=== PATIENT | male | born 1940 | race Caucasian/White ===

== ENCOUNTER → 2016-11-16 | Outpatient (CLI) | payer MEDICARE, MEDICAID ==
[~2016-11-16] MED LIST: ASPI-231; CARB100C; CARV25TA55; DOXY100C46; FURO40TA4; LISI-275; POTA20TA53; WARF4TAB31
[2016-11-16 14:17] LABS: INR 3.3 (0.7-1.3); Prothrombin Time 40.2 sec (9.0-12.0)
== END | disposition home or self-care (01) ==
LOC: LAB 14:01
PROVIDERS: ATTEND Internal Medicine Cardiovascular Disease
DX: R79.1 Abnormal coagulation profile (principal)
CPT/HCPCS: 85610

== ENCOUNTER → 2016-11-23 | Outpatient (CLI) | payer MEDICARE, MEDICAID ==
[2016-11-23 10:06] LABS: INR 2.1 (0.7-1.3); Prothrombin Time 25.1 sec (9.0-12.0)
== END | disposition home or self-care (01) ==
LOC: LAB 09:52
PROVIDERS: ATTEND Internal Medicine Cardiovascular Disease
DX: R79.1 Abnormal coagulation profile (principal)
CPT/HCPCS: 85610

== ENCOUNTER → 2016-11-29 | Outpatient (CLI) | payer MEDICARE, MEDICAID ==
[2016-11-29 14:35] LABS: INR 2.8 (0.7-1.3); Prothrombin Time 33.3 sec (9.0-12.0)
== END | disposition home or self-care (01) ==
LOC: LAB 14:08
PROVIDERS: ATTEND Internal Medicine Cardiovascular Disease
DX: R79.1 Abnormal coagulation profile (principal)
CPT/HCPCS: 85610

== ENCOUNTER → 2016-12-07 | Outpatient (CLI) | payer MEDICARE, MEDICAID ==
[2016-12-07 11:21] LABS: INR 3.4 (0.7-1.3); Prothrombin Time 40.8 sec (9.0-12.0)
== END | disposition home or self-care (01) ==
LOC: LAB 11:07
PROVIDERS: ATTEND Internal Medicine Cardiovascular Disease
DX: R79.1 Abnormal coagulation profile (principal)
CPT/HCPCS: 85610

== ENCOUNTER → 2016-12-13 | Outpatient (CLI) | payer MEDICARE, MEDICAID ==
[2016-12-13 11:46] LABS: Prothrombin Time 36.3 sec (9.0-12.0)
== END | disposition home or self-care (01) ==
LOC: LAB 08:59
PROVIDERS: ATTEND Internal Medicine Cardiovascular Disease
DX: R79.1 Abnormal coagulation profile (principal)
CPT/HCPCS: 85610

== ENCOUNTER → 2016-12-17 | Outpatient (CLI) | payer MEDICARE, MEDICAID ==
[2016-12-17 10:36] LABS: INR 1.6 (0.7-1.3); Prothrombin Time 19.6 sec (9.0-12.0)
== END | disposition home or self-care (01) ==
LOC: LAB 08:41
PROVIDERS: ATTEND Internal Medicine Cardiovascular Disease
DX: R79.1 Abnormal coagulation profile (principal)
CPT/HCPCS: 85610

== ENCOUNTER → 2016-12-26 | Outpatient (CLI) | payer MEDICARE, MEDICAID ==
[~2016-12-26] MED LIST changes: +ENOXAPARIN SOD 60 MG/0.6 ML SYRINGE SC ONE
[2016-12-26 10:55] VITALS: BP 133/72
[2016-12-26] MEDS: ENOXAPARIN SOD 60 MG/0.6 ML SYRINGE SC ONE (11:27)
[2016-12-26 11:30] VITALS: BP 130/68
[2016-12-26 12:16] LABS: INR 2.4 (0.7-1.3); Prothrombin Time 29.2 sec (9.0-12.0)
== END | disposition home or self-care (01) ==
LOC: CHF HDHVI 10:56
PROVIDERS: ATTEND Internal Medicine Cardiovascular Disease
DX: I50.23 Acute on chronic systolic (congestive) heart failure (principal); I10 Essential (primary) hypertension; I25.10 Atherosclerotic heart disease of native coronary artery without angina pectoris; E78.00 Pure hypercholesterolemia, unspecified; R79.1 Abnormal coagulation profile; Z95.0 Presence of cardiac pacemaker
CPT/HCPCS: 85610; 96372; G0463; J1650

== ENCOUNTER → 2016-12-27 | Outpatient (CLI) | payer MEDICARE, MEDICAID ==
[2016-12-27 15:10] VITALS: BP 114/60
[2016-12-27 15:45] VITALS: BP 122/60
== END | disposition home or self-care (01) ==
LOC: CHF HDHVI 15:09
PROVIDERS: ATTEND Internal Medicine Cardiovascular Disease
DX: I50.23 Acute on chronic systolic (congestive) heart failure (principal); I25.10 Atherosclerotic heart disease of native coronary artery without angina pectoris; I10 Essential (primary) hypertension; C78.00 Secondary malignant neoplasm of unspecified lung; Z95.2 Presence of prosthetic heart valve
CPT/HCPCS: 96372; G0463; J1650

== ENCOUNTER → 2016-12-31 | Outpatient (CLI) | payer MEDICARE, MEDICAID ==
[~2016-12-31] MED LIST changes: +KETOROLAC TROMETH 60MG/2ML VIAL IM ONE
[2016-12-31 11:44] VITALS: BP 132/76
[2016-12-31 12:45] VITALS: BP 130/72
[2016-12-31 17:32] LABS: Basophils # (auto) 0 uL; Basophils % (auto) 0.5 % (0.0-2.0); Eosinophils # (auto) 0.1 uL; Eosinophils % (auto) 2.9 % (0.0-7.0); Hematocrit 36.5 % (41.0-53.0); Hemoglobin 11.7 g/dL (13.5-17.5); Lymphocytes # (auto) 0.9 uL; Lymphocytes % (auto) 22.3 % (10.0-50.0); Mean Corpuscular Hemoglobin 27.7 pg (28.0-32.0); Mean Corpuscular Hgb Conc. 32.1 g/dL (32.0-36.0); Mean Corpuscular Volume 86.1 fL (80.0-100.0); Mean Platelet Volume 8.1 fL (7.4-10.4); Monocytes # (auto) 0.6 uL; Monocytes % (auto) 14.6 % (0.0-12.0); Neutrophils # (auto) 2.4 uL; Neutrophils % (auto) 59.7 % (37.0-80.0); Platelet Count (auto) 221 10^3/uL (140-450); Red Cell Distribution Width 17.5 % (11.6-16.0)
[2016-12-31 17:52] LABS: Anion Gap 10 (5-15); BUN/Creatinine Ratio 11.8; Blood Urea Nitrogen 11 mg/dL (7-18); Calcium 8.5 mg/dL (8.5-10.1); Carbon Dioxide 25 mmol/L (21-32); Chloride 108 mmol/L (98-107); GFR African American 102 mL/min; GFR Non-African American 84 mL/min; Glucose 73 mg/dL (74-106); Magnesium 2.6 mg/dL (1.6-2.6); Potassium 4.1 mmol/L (3.5-5.1); Sodium 143 mmol/L (136-145)
== END | disposition home or self-care (01) ==
LOC: CHF HDHVI 11:40
PROVIDERS: ATTEND Internal Medicine Cardiovascular Disease
DX: R79.89 Other specified abnormal findings of blood chemistry (principal); R53.81 Other malaise; D64.9 Anemia, unspecified; E83.40 Disorders of magnesium metabolism, unspecified; T42.1X Poisoning by, adverse effect of and underdosing of iminostilbenes
CPT/HCPCS: 36415; 80048; 80156; 83735; 84403; 84484; 85025; 93005; 96372; G0463; J1885

== ENCOUNTER → 2017-01-02 | Outpatient (CLI) | payer MEDICARE, MEDICAID ==
[2017-01-02 09:25] VITALS: BP 144/79
[2017-01-02 09:42] LABS: INR 3.5 (0.7-1.3)
[2017-01-02 09:55] VITALS: BP 137/79
== END | disposition home or self-care (01) ==
LOC: CHF HDHVI 09:34
PROVIDERS: ATTEND Internal Medicine Cardiovascular Disease
DX: I10 Essential (primary) hypertension (principal); D64.9 Anemia, unspecified; I25.10 Atherosclerotic heart disease of native coronary artery without angina pectoris; M54.2 Cervicalgia
CPT/HCPCS: 85610; 96372; G0463; J1650; J1885

== ENCOUNTER → 2017-01-07 | Outpatient (CLI) | payer MEDICARE, MEDICAID ==
[~2017-01-07] MED LIST changes: -ENOXAPARIN SOD 60 MG/0.6 ML SYRINGE SC ONE; -KETOROLAC TROMETH 60MG/2ML VIAL IM ONE
[2017-01-07 11:40] VITALS: BP 163/84
[2017-01-07 13:11] LABS: INR 2.8 (0.7-1.3); Prothrombin Time 33.1 sec (9.0-12.0)
[2017-01-07 13:56] LABS: INR 2.8 (0.7-1.3); Prothrombin Time 33.1 sec (9.0-12.0)
== END | disposition home or self-care (01) ==
LOC: CHF HDHVI 11:49
PROVIDERS: ATTEND Internal Medicine Cardiovascular Disease
DX: I35.0 Nonrheumatic aortic (valve) stenosis (principal); I25.10 Atherosclerotic heart disease of native coronary artery without angina pectoris; I10 Essential (primary) hypertension; D64.9 Anemia, unspecified; R79.1 Abnormal coagulation profile
CPT/HCPCS: 85610; G0463

== ENCOUNTER → 2017-01-09 | Outpatient (CLI) | payer MEDICARE, MEDICAID ==
[~2017-01-09] MED LIST changes: +KETOROLAC TROMETH 60MG/2ML VIAL IM ONE
[2017-01-09 09:30] VITALS: BP 131/74
[2017-01-09 09:45] VITALS: BP 134/70
== END | disposition home or self-care (01) ==
LOC: CHF HDHVI 09:18
PROVIDERS: ATTEND Internal Medicine Cardiovascular Disease
DX: I11.0 Hypertensive heart disease with heart failure (principal); I50.9 Heart failure, unspecified; I25.10 Atherosclerotic heart disease of native coronary artery without angina pectoris; M54.2 Cervicalgia
CPT/HCPCS: 96372; G0463; J1885

== ENCOUNTER → 2017-01-14 | Outpatient (CLI) | payer MEDICARE, MEDICAID ==
[~2017-01-14] MED LIST changes: -KETOROLAC TROMETH 60MG/2ML VIAL IM ONE
[2017-01-14 11:30] VITALS: BP 117/67
[2017-01-14 11:37] LABS: INR 3.4 (0.7-1.3); Prothrombin Time 40.9 sec (9.0-12.0)
[2017-01-14 12:00] VITALS: BP 114/72
== END | disposition home or self-care (01) ==
LOC: CHF HDHVI 11:29
PROVIDERS: ATTEND Internal Medicine Cardiovascular Disease
DX: I11.0 Hypertensive heart disease with heart failure (principal); I50.9 Heart failure, unspecified; I25.10 Atherosclerotic heart disease of native coronary artery without angina pectoris; Z95.2 Presence of prosthetic heart valve; R79.1 Abnormal coagulation profile; Z79.01 Long term (current) use of anticoagulants
CPT/HCPCS: 85610; G0463

== ENCOUNTER → 2017-01-28 | Outpatient (CLI) | payer MEDICARE, MEDICAID ==
[2017-01-28 09:50] VITALS: BP 145/68
[2017-01-28 10:30] VITALS: BP 129/66
[2017-01-29 15:56] LABS: INR 3.2 (0.7-1.3); Prothrombin Time 38.2 sec (9.0-12.0)
== END | disposition home or self-care (01) ==
LOC: CHF HDHVI 10:09
PROVIDERS: ATTEND Internal Medicine Cardiovascular Disease
DX: I25.10 Atherosclerotic heart disease of native coronary artery without angina pectoris (principal); I10 Essential (primary) hypertension; Z79.01 Long term (current) use of anticoagulants
CPT/HCPCS: 85610; G0463

== ENCOUNTER → 2017-01-31 | Outpatient (CLI) | payer MEDICARE, MEDICAID ==
[~2017-01-31] MED LIST changes: +CYANOCOBALAMIN (B-12) 1000 MCG/1 ML VIAL IM ONE; +CYANOCOBALAMIN (B-12) 1000 MCG/1 ML VIAL ONE
[2017-01-31 09:35] VITALS: BP 134/76
[2017-01-31 10:12] LABS: INR 2.1 (0.7-1.3)
[2017-01-31 10:15] VITALS: BP 116/60
== END | disposition home or self-care (01) ==
LOC: CHF HDHVI 09:40
PROVIDERS: ATTEND Internal Medicine Cardiovascular Disease
DX: I11.0 Hypertensive heart disease with heart failure (principal); I50.9 Heart failure, unspecified; I25.10 Atherosclerotic heart disease of native coronary artery without angina pectoris; D64.9 Anemia, unspecified; E78.00 Pure hypercholesterolemia, unspecified; Z95.0 Presence of cardiac pacemaker
CPT/HCPCS: 85610; 96372; G0463; J3420

== ENCOUNTER → 2017-02-01 | Outpatient (CLI) | payer MEDICARE, MEDICAID ==
[~2017-02-01] MED LIST changes: -CYANOCOBALAMIN (B-12) 1000 MCG/1 ML VIAL IM ONE; -CYANOCOBALAMIN (B-12) 1000 MCG/1 ML VIAL ONE; +ENOXAPARIN SOD 30 MG/0.3 ML SYRINGE ONE; +ENOXAPARIN SOD 30 MG/0.3 ML SYRINGE SC ONE
[2017-02-01 08:35] VITALS: BP 137/78
[2017-02-01 08:55] VITALS: BP 138/83
== END | disposition home or self-care (01) ==
LOC: CHF HDHVI 08:42
PROVIDERS: ATTEND Internal Medicine Cardiovascular Disease
DX: I11.0 Hypertensive heart disease with heart failure (principal); I50.9 Heart failure, unspecified; I10 Essential (primary) hypertension; D64.9 Anemia, unspecified; E78.00 Pure hypercholesterolemia, unspecified; Z79.01 Long term (current) use of anticoagulants
CPT/HCPCS: 96372; G0463; J1650

== ENCOUNTER → 2017-02-04 | Outpatient (CLI) | payer MEDICARE, MEDICAID ==
[~2017-02-04] MED LIST changes: -ENOXAPARIN SOD 30 MG/0.3 ML SYRINGE ONE; -ENOXAPARIN SOD 30 MG/0.3 ML SYRINGE SC ONE
[2017-02-04 08:25] VITALS: BP 142/71
[2017-02-04 08:51] LABS: INR 1.3 (0.7-1.3); Prothrombin Time 15.4 sec (9.0-12.0)
[2017-02-04 08:55] VITALS: BP 139/81
== END | disposition home or self-care (01) ==
LOC: CHF HDHVI 08:25
PROVIDERS: ATTEND Internal Medicine Cardiovascular Disease
DX: I11.0 Hypertensive heart disease with heart failure (principal); I50.9 Heart failure, unspecified; I25.10 Atherosclerotic heart disease of native coronary artery without angina pectoris; D64.9 Anemia, unspecified; E78.00 Pure hypercholesterolemia, unspecified; R79.1 Abnormal coagulation profile; Z95.0 Presence of cardiac pacemaker; Z79.01 Long term (current) use of anticoagulants
CPT/HCPCS: 85610; G0463

== ENCOUNTER → 2017-02-06 | Outpatient (CLI) | payer MEDICARE, MEDICAID ==
[2017-02-06 09:35] VITALS: BP 131/75
[2017-02-06 10:00] VITALS: BP 109/65
[2017-02-06 15:53] LABS: INR 1.5 (0.7-1.3); Prothrombin Time 17.9 sec (9.0-12.0)
== END ==
LOC: CHF HDHVI 09:52
PROVIDERS: ATTEND Internal Medicine Cardiovascular Disease
DX: I50.9 Heart failure, unspecified (principal); I10 Essential (primary) hypertension; I25.10 Atherosclerotic heart disease of native coronary artery without angina pectoris; E78.00 Pure hypercholesterolemia, unspecified; Z79.01 Long term (current) use of anticoagulants; Z95.0 Presence of cardiac pacemaker
CPT/HCPCS: 85610; G0463

== ENCOUNTER → 2017-02-08 | Outpatient (CLI) | payer MEDICARE, MEDICAID ==
[2017-02-08 09:30] VITALS: BP 134/75
[2017-02-08 09:48] VITALS: BP 130/72
[2017-02-08 10:01] LABS: INR 3.2 (0.7-1.3); Prothrombin Time 38.2 sec (9.0-12.0)
== END ==
LOC: CHF HDHVI 09:22
PROVIDERS: ATTEND Internal Medicine Cardiovascular Disease
DX: I25.10 Atherosclerotic heart disease of native coronary artery without angina pectoris (principal)
CPT/HCPCS: 85610; G0463

== ENCOUNTER → 2017-02-12 | Outpatient (CLI) | payer MEDICARE, MEDICAID ==
[2017-02-12 09:30] VITALS: BP 118/61
[2017-02-12 09:56] LABS: INR 2.3 (0.7-1.3); Prothrombin Time 28.1 sec (9.0-12.0)
[2017-02-12 10:00] VITALS: BP 104/57
== END ==
LOC: CHF HDHVI 09:32
PROVIDERS: ATTEND Internal Medicine Cardiovascular Disease
DX: I11.0 Hypertensive heart disease with heart failure (principal); I50.9 Heart failure, unspecified; I25.10 Atherosclerotic heart disease of native coronary artery without angina pectoris; E78.00 Pure hypercholesterolemia, unspecified; Z95.0 Presence of cardiac pacemaker; Z79.01 Long term (current) use of anticoagulants; R79.1 Abnormal coagulation profile
CPT/HCPCS: 85610; G0463

== ENCOUNTER → 2017-02-15 | Outpatient (CLI) | payer MEDICARE, MEDICAID ==
[2017-02-15 09:00] VITALS: BP 112/70
[2017-02-15 09:15] VITALS: BP_SYST 111; BP_SYST 112; BP_DIAS 67; BP_DIAS 70
[2017-02-15 09:27] LABS: INR 2.8 (0.7-1.3)
== END | disposition home or self-care (01) ==
LOC: CHF HDHVI 09:04
PROVIDERS: ATTEND Internal Medicine Cardiovascular Disease
DX: I48.91 Unspecified atrial fibrillation (principal)
CPT/HCPCS: 85610; G0463

== ENCOUNTER → 2017-02-22 | Outpatient (CLI) | payer MEDICARE, MEDICAID ==
[2017-02-22 09:20] VITALS: BP 119/69
[2017-02-22 09:51] VITALS: BP 120/68
[2017-02-22 10:12] LABS: INR 2.7 (0.7-1.3); Prothrombin Time 32.9 sec (9.0-12.0)
== END | disposition home or self-care (01) ==
LOC: CHF HDHVI 09:25
PROVIDERS: ATTEND Internal Medicine Cardiovascular Disease
DX: I50.9 Heart failure, unspecified (principal); I48.91 Unspecified atrial fibrillation
CPT/HCPCS: 85610; G0463

== ENCOUNTER → 2017-03-01 | Outpatient (CLI) | payer MEDICARE, MEDICAID ==
[~2017-03-01] VITALS: Ht 30.5 cm; Wt 0.5 kg
[~2017-03-01] MED LIST changes: +KETOROLAC TROMETH 60MG/2ML VIAL IM ONE; +TESTOSTERONE CYPIONATE 200 MG/ML 1ML VIAL IM ONE
[2017-03-01 08:55] VITALS: BP 143/87
[2017-03-01 09:40] VITALS: BP 127/80
[2017-03-01 10:27] LABS: INR 3.1 (0.7-1.3); Prothrombin Time 37.8 sec (9.0-12.0)
== END | disposition home or self-care (01) ==
LOC: CHF HDHVI 08:57
PROVIDERS: ATTEND Internal Medicine Cardiovascular Disease
DX: I11.0 Hypertensive heart disease with heart failure (principal); I50.9 Heart failure, unspecified; I25.10 Atherosclerotic heart disease of native coronary artery without angina pectoris; E78.00 Pure hypercholesterolemia, unspecified; Z95.0 Presence of cardiac pacemaker
CPT/HCPCS: 85610; 96372; G0463; J1071; J1885

== ENCOUNTER → 2017-03-07 | Outpatient (CLI) | payer MEDICARE, MEDICAID ==
[~2017-03-07] MED LIST changes: -KETOROLAC TROMETH 60MG/2ML VIAL IM ONE
[2017-03-07 09:10] VITALS: BP 124/74
[2017-03-07 09:40] VITALS: BP 124/72
[2017-03-07] MEDS: TESTOSTERONE CYPIONATE 200 MG/ML 1ML VIAL IM ONE ×2 (09:43→12:26)
[2017-03-07 10:32] LABS: INR 2.9 (0.7-1.3); Prothrombin Time 35.2 sec (9.0-12.0)
== END | disposition home or self-care (01) ==
LOC: CHF HDHVI 09:12
PROVIDERS: ATTEND Internal Medicine Cardiovascular Disease
CPT/HCPCS: 85610 ×2; 96372 ×2; G0463 ×2; J1071 ×2

== ENCOUNTER → 2017-03-08 | Outpatient (CLI) | payer MEDICARE, MEDICAID ==
[~2017-03-08] MED LIST changes: -TESTOSTERONE CYPIONATE 200 MG/ML 1ML VIAL IM ONE
[2017-03-08 17:10] LABS: BUN/Creatinine Ratio 16.3; Calcium 8.6 mg/dL (8.5-10.1); Potassium 3.9 mmol/L (3.5-5.1)
== END | disposition home or self-care (01) ==
LOC: LAB 11:45
PROVIDERS: ATTEND Internal Medicine Cardiovascular Disease
DX: R97.20 Elevated prostate specific antigen [PSA] (principal); I10 Essential (primary) hypertension; N39.0 Urinary tract infection, site not specified
CPT/HCPCS: 36415; 80048; 84153; 87086

== ENCOUNTER → 2017-03-15 | Outpatient (CLI) | payer MEDICARE, MEDICAID ==
[~2017-03-15] MED LIST changes: +TESTOSTERONE CYPIONATE 200 MG/ML 1ML VIAL IM ONE
[2017-03-15 08:10] VITALS: BP 147/87
[2017-03-15 08:32] LABS: INR 4.2 (0.7-1.3); Prothrombin Time 50.7 sec (9.0-12.0)
[2017-03-15 08:45] VITALS: BP 147/79
== END | disposition home or self-care (01) ==
LOC: CHF HDHVI 08:22
PROVIDERS: ATTEND Internal Medicine Cardiovascular Disease
DX: I11.0 Hypertensive heart disease with heart failure (principal); I50.9 Heart failure, unspecified; I25.10 Atherosclerotic heart disease of native coronary artery without angina pectoris; E29.1 Testicular hypofunction; Z95.0 Presence of cardiac pacemaker
CPT/HCPCS: 85610; 96372; G0463; J1071

== ENCOUNTER → 2017-03-22 | Outpatient (CLI) | payer MEDICARE, MEDICAID ==
[2017-03-22 09:20] VITALS: BP 108/65
[2017-03-22 09:54] VITALS: BP 124/67
[2017-03-22 11:57] LABS: INR 2.9 (0.7-1.3); Prothrombin Time 34.9 sec (9.0-12.0)
== END | disposition home or self-care (01) ==
LOC: CHF HDHVI 09:11
PROVIDERS: ATTEND Internal Medicine Cardiovascular Disease
DX: I50.9 Heart failure, unspecified (principal); I48.91 Unspecified atrial fibrillation; E29.1 Testicular hypofunction
CPT/HCPCS: 85610; 96372; G0463; J1071

== ENCOUNTER → 2017-03-29 | Outpatient (CLI) | payer MEDICARE, MEDICAID ==
[2017-03-29 09:10] VITALS: BP 135/83
[2017-03-29 09:30] VITALS: BP 128/68
[2017-03-29 15:17] LABS: INR 4.1 (0.7-1.3); Prothrombin Time 49.2 sec (9.0-12.0)
== END | disposition home or self-care (01) ==
LOC: CHF HDHVI 09:21
PROVIDERS: ATTEND Internal Medicine Cardiovascular Disease
DX: Z51.81 Encounter for therapeutic drug level monitoring (principal); I48.91 Unspecified atrial fibrillation; I50.9 Heart failure, unspecified; Z79.01 Long term (current) use of anticoagulants; Z95.2 Presence of prosthetic heart valve
CPT/HCPCS: 85610; 96372; G0463; J1071

== ENCOUNTER → 2017-04-05 | Outpatient (CLI) | payer MEDICARE, MEDICAID ==
[~2017-04-05] VITALS: Ht 30.5 cm; Wt 81.6 kg
[2017-04-05 09:30] VITALS: BP 132/76
[2017-04-05 10:05] VITALS: BP 128/72
[2017-04-05 12:46] LABS: INR 3.9 (0.7-1.3); Prothrombin Time 47.2 sec (9.0-12.0)
== END | disposition home or self-care (01) ==
LOC: CHF HDHVI 09:36
PROVIDERS: ATTEND Internal Medicine Cardiovascular Disease
DX: I50.9 Heart failure, unspecified (principal); I48.91 Unspecified atrial fibrillation; E29.1 Testicular hypofunction
CPT/HCPCS: 85610; 96372; G0463; J1071

== ENCOUNTER → 2017-04-11 | Outpatient (CLI) | payer MEDICARE, MEDICAID ==
[2017-04-11 08:00] VITALS: BP 117/66
[2017-04-11 08:40] VITALS: BP 126/73
[2017-04-11 10:37] LABS: INR 2.5 (0.7-1.3); Prothrombin Time 29.5 sec (9.0-12.0)
== END | disposition home or self-care (01) ==
LOC: CHF HDHVI 08:00
PROVIDERS: ATTEND Internal Medicine Cardiovascular Disease
DX: R53.81 Other malaise (principal)
CPT/HCPCS: 36415; 84403; 85610; 96372; G0463; J1071

== ENCOUNTER → 2017-04-19 | Outpatient (CLI) | payer MEDICARE, MEDICAID ==
[2017-04-19 09:00] VITALS: BP 127/61
[2017-04-19 10:15] VITALS: BP_SYST 133; BP_SYST 140; BP_DIAS 56; BP_DIAS 58
[2017-04-19 10:40] VITALS: BP 140/58
== END | disposition home or self-care (01) ==
LOC: CHF HDHVI 09:03
PROVIDERS: ATTEND Internal Medicine Cardiovascular Disease
DX: I10 Essential (primary) hypertension (principal); D64.9 Anemia, unspecified
CPT/HCPCS: 36415; 85025; 96372; G0463; J1071

== ENCOUNTER → 2017-04-26 | Outpatient (CLI) | payer MEDICARE, MEDICAID ==
[~2017-04-26] MED LIST changes: +CYANOCOBALAMIN (B-12) 1000 MCG/1 ML VIAL IM ONE; +CYANOCOBALAMIN (B-12) 1000 MCG/1 ML VIAL ONE
[2017-04-26 08:52] LABS: INR 3.6 (0.7-1.3)
[2017-04-26 09:05] VITALS: BP 90/47
== END ==
LOC: CHF HDHVI 08:31
PROVIDERS: ATTEND Internal Medicine Cardiovascular Disease
DX: I50.9 Heart failure, unspecified (principal); I48.91 Unspecified atrial fibrillation; R00.1 Bradycardia, unspecified; Z95.810 Presence of automatic (implantable) cardiac defibrillator; Z95.2 Presence of prosthetic heart valve
CPT/HCPCS: 85610; 96372; G0463; J3420; J1071

== ENCOUNTER → 2017-05-03 | Outpatient (CLI) | payer MEDICARE, MEDICAID ==
[~2017-05-03] MED LIST changes: -CYANOCOBALAMIN (B-12) 1000 MCG/1 ML VIAL ONE
[2017-05-03 08:00] VITALS: BP 123/72
[2017-05-03 08:30] VITALS: BP 136/68
[2017-05-03 08:52] LABS: INR 1.9 (0.7-1.3); Prothrombin Time 23.3 sec (9.0-12.0)
== END | disposition home or self-care (01) ==
LOC: CHF HDHVI 08:06
PROVIDERS: ATTEND Internal Medicine Cardiovascular Disease
DX: I50.9 Heart failure, unspecified (principal); R89.1 Abnormal level of hormones in specimens from other organs, systems and tissues; Z79.899 Other long term (current) drug therapy
CPT/HCPCS: 85610; 96372; G0463; J1071

== ENCOUNTER → 2017-05-10 | Outpatient (CLI) | payer MEDICARE, MEDICAID ==
[~2017-05-10] MED LIST changes: -CYANOCOBALAMIN (B-12) 1000 MCG/1 ML VIAL IM ONE; -TESTOSTERONE CYPIONATE 200 MG/ML 1ML VIAL IM ONE
[2017-05-10 10:45] VITALS: BP 129/56
[2017-05-10 11:20] VITALS: BP 118/55
[2017-05-10 14:42] LABS: INR 3.6 (0.7-1.3); Prothrombin Time 43.5 sec (9.0-12.0)
== END | disposition home or self-care (01) ==
LOC: CHF HDHVI 10:46
PROVIDERS: ATTEND Internal Medicine Cardiovascular Disease
DX: I50.9 Heart failure, unspecified (principal); I48.91 Unspecified atrial fibrillation; R53.83 Other fatigue
CPT/HCPCS: 85610; G0463

== ENCOUNTER → 2017-05-16 | Outpatient (CLI) | payer MEDICARE, MEDICAID ==
[2017-05-16 11:15] VITALS: BP 115/58
[2017-05-16 11:50] VITALS: BP 110/60
[2017-05-16 12:37] LABS: INR 3.2 (0.7-1.3); Prothrombin Time 38.1 sec (9.0-12.0)
[2017-05-16 16:28] LABS: Basophils # (auto) 0 uL; Basophils % (auto) 0.6 % (0.0-2.0); CONDITION Y; Eosinophils # (auto) 0.2 uL; Eosinophils % (auto) 3.7 % (0.0-7.0); Hematocrit 34.9 % (41.0-53.0); Hemoglobin 11.3 g/dL (13.5-17.5); Lymphocytes # (auto) 0.8 uL; Lymphocytes % (auto) 17.7 % (10.0-50.0); Mean Corpuscular Hgb Conc. 32.5 g/dL (32.0-36.0); Mean Corpuscular Volume 83.3 fL (80.0-100.0); Mean Platelet Volume 8.5 fL (7.4-10.4); Monocytes # (auto) 0.6 uL; Monocytes % (auto) 12.9 % (0.0-12.0); Neutrophils # (auto) 2.9 uL; Neutrophils % (auto) 65.1 % (37.0-80.0); Platelet Count (auto) 218 10^3/uL (140-450); Red Cell Distribution Width 18.2 % (11.6-16.0); White Blood Cell 4.5 10^3/uL (4.4-10.8)
[2017-05-16 17:06] LABS: BUN/Creatinine Ratio 14.4; Calcium 8.3 mg/dL (8.5-10.1); Magnesium 2.6 mg/dL (1.6-2.6)
[2017-05-16 17:13] LABS: B-Type Natriuretic Peptide 324.38 pg/mL (0-100)
[2017-05-16 17:25] LABS: Temperature: 24.1 C (20.0-25.0)
== END | disposition home or self-care (01) ==
LOC: CHF HDHVI 10:42
PROVIDERS: ATTEND Internal Medicine Cardiovascular Disease
DX: I50.9 Heart failure, unspecified (principal); I10 Essential (primary) hypertension; E83.42 Hypomagnesemia; D64.9 Anemia, unspecified
CPT/HCPCS: 36415; 80048; 83735; 83880; 85025; 85610; G0463

== ENCOUNTER → 2017-05-24 | Outpatient (CLI) | payer MEDICARE, MEDICAID ==
[2017-05-24 09:00] VITALS: BP 148/82
[2017-05-24 09:32] LABS: INR 2.9 (0.7-1.3); Prothrombin Time 34.9 sec (9.0-12.0)
[2017-05-24 09:45] VITALS: BP 142/70
== END | disposition home or self-care (01) ==
LOC: CHF HDHVI 08:59
PROVIDERS: ATTEND Internal Medicine Cardiovascular Disease
DX: I50.9 Heart failure, unspecified (principal); I48.91 Unspecified atrial fibrillation; Z79.01 Long term (current) use of anticoagulants
CPT/HCPCS: 85610; G0463

== ENCOUNTER → 2017-05-31 | Outpatient (CLI) | payer MEDICARE, MEDICAID ==
[~2017-05-31] MED LIST changes: +CYANOCOBALAMIN (B-12) 1000 MCG/1 ML VIAL IM ONE; +CYANOCOBALAMIN (B-12) 1000 MCG/1 ML VIAL ONE; +TESTOSTERONE CYPIONATE 200 MG/ML 1ML VIAL IM ONE
[2017-05-31 08:00] VITALS: BP 139/70
[2017-05-31 08:41] LABS: INR 2.8 (0.7-1.3); Prothrombin Time 33.4 sec (9.0-12.0)
[2017-05-31 08:50] VITALS: BP 118/61
== END | disposition home or self-care (01) ==
LOC: CHF HDHVI 08:03
PROVIDERS: ATTEND Internal Medicine Cardiovascular Disease
DX: I50.9 Heart failure, unspecified (principal); I48.91 Unspecified atrial fibrillation; R53.83 Other fatigue
CPT/HCPCS: 85610; 96372; G0463; J3420; J1071

== ENCOUNTER → 2017-06-07 | Outpatient (CLI) | payer MEDICARE, MEDICAID ==
[~2017-06-07] MED LIST changes: -CYANOCOBALAMIN (B-12) 1000 MCG/1 ML VIAL IM ONE; -CYANOCOBALAMIN (B-12) 1000 MCG/1 ML VIAL ONE; -TESTOSTERONE CYPIONATE 200 MG/ML 1ML VIAL IM ONE
[2017-06-07 08:15] VITALS: BP 145/63
[2017-06-07 08:45] VITALS: BP 137/72
[2017-06-07 10:22] LABS: INR 2.7 (0.7-1.3); Prothrombin Time 31.9 sec (9.0-12.0)
== END | disposition home or self-care (01) ==
LOC: CHF HDHVI 08:20
PROVIDERS: ATTEND Internal Medicine Cardiovascular Disease
DX: I50.9 Heart failure, unspecified (principal); I48.91 Unspecified atrial fibrillation; Z95.2 Presence of prosthetic heart valve
CPT/HCPCS: 85610; G0463

== ENCOUNTER → 2017-06-12 | Outpatient (CLI) | payer MEDICARE, MEDICAID ==
[2017-06-12 08:10] VITALS: BP 126/72
[2017-06-12 08:40] VITALS: BP 137/83
== END | disposition home or self-care (01) ==
LOC: CHF HDHVI 08:14
PROVIDERS: ATTEND Internal Medicine Cardiovascular Disease
DX: I50.9 Heart failure, unspecified (principal); I25.10 Atherosclerotic heart disease of native coronary artery without angina pectoris; I48.91 Unspecified atrial fibrillation; Z79.01 Long term (current) use of anticoagulants; Z95.2 Presence of prosthetic heart valve
CPT/HCPCS: G0463

== ENCOUNTER → 2017-06-19 | Outpatient (CLI) | payer MEDICARE, MEDICAID ==
[2017-06-19 08:25] VITALS: BP 106/61
[2017-06-19 09:00] VITALS: BP 123/60
[2017-06-19 09:42] LABS: INR 2.7 (0.7-1.3); Prothrombin Time 32.4 sec (9.0-12.0)
== END | disposition home or self-care (01) ==
LOC: CHF HDHVI 08:28
PROVIDERS: ATTEND Internal Medicine Cardiovascular Disease
DX: I48.91 Unspecified atrial fibrillation (principal); Z95.810 Presence of automatic (implantable) cardiac defibrillator; Z95.2 Presence of prosthetic heart valve; Z79.01 Long term (current) use of anticoagulants
CPT/HCPCS: 85610; G0463

== ENCOUNTER → 2017-06-28 | Outpatient (CLI) | payer MEDICARE, MEDICAID ==
[2017-06-28 08:15] VITALS: BP 139/68
[2017-06-28 08:32] LABS: INR 3.2 (0.7-1.3); Prothrombin Time 38.5 sec (9.0-12.0)
[2017-06-28 08:45] VITALS: BP 144/72
== END | disposition home or self-care (01) ==
LOC: CHF HDHVI 08:11
PROVIDERS: ATTEND Internal Medicine Cardiovascular Disease
DX: I50.9 Heart failure, unspecified (principal); I11.0 Hypertensive heart disease with heart failure
CPT/HCPCS: 85610; G0463

== ENCOUNTER → 2017-07-03 | Outpatient (CLI) | payer MEDICARE, MEDICAID ==
[2017-07-03 08:00] VITALS: BP 145/79
[2017-07-03 08:22] LABS: INR 1.9 (0.7-1.3); Prothrombin Time 23.4 sec (9.0-12.0)
[2017-07-03 08:30] VITALS: BP 146/81
== END | disposition home or self-care (01) ==
LOC: CHF HDHVI 08:00
PROVIDERS: ATTEND Internal Medicine Cardiovascular Disease
DX: I25.10 Atherosclerotic heart disease of native coronary artery without angina pectoris (principal); Z79.899 Other long term (current) drug therapy
CPT/HCPCS: 85610; G0463

== ENCOUNTER → 2017-07-17 | Outpatient (CLI) | payer MEDICARE, MEDICAID ==
[2017-07-17 08:00] VITALS: BP 135/63
[2017-07-17 08:30] VITALS: BP 139/66
== END | disposition home or self-care (01) ==
LOC: CHF HDHVI 08:08
PROVIDERS: ATTEND Internal Medicine Cardiovascular Disease
DX: I11.0 Hypertensive heart disease with heart failure (principal); I50.9 Heart failure, unspecified
CPT/HCPCS: G0463

== ENCOUNTER → 2017-07-26 | Outpatient (CLI) | payer MEDICARE, MEDICAID ==
[2017-07-26 08:30] VITALS: BP 159/86
[2017-07-26 09:22] VITALS: BP 168/98
[2017-07-26 12:23] LABS: Basophils # (auto) 0 uL; Basophils % (auto) 0.5 % (0.0-2.0); CONDITION Y; DEFINITIVE SEE PRINTOUT; Eosinophils # (auto) 0.1 uL; Eosinophils % (auto) 3.7 % (0.0-7.0); Hematocrit 38.7 % (41.0-53.0); Hemoglobin 12.7 g/dL (13.5-17.5); Lymphocytes # (auto) 0.8 uL; Lymphocytes % (auto) 20.9 % (10.0-50.0); Mean Corpuscular Hemoglobin 27.9 pg (28.0-32.0); Mean Corpuscular Hgb Conc. 32.8 g/dL (32.0-36.0); Mean Corpuscular Volume 85.2 fL (80.0-100.0); Mean Platelet Volume 8.1 fL (6.9-10.8); Monocytes # (auto) 0.3 uL; Monocytes % (auto) 8.6 % (0.0-12.0); Neutrophils # (auto) 2.5 uL; Neutrophils % (auto) 66.3 % (37.0-80.0); Platelet Count (auto) 189 10^3/uL (140-450); White Blood Cell 3.8 10^3/uL (4.4-10.8)
[2017-07-26 12:39] LABS: Red Cell Distribution Width 22.8 % (11.8-14.3)
[2017-07-26 13:12] LABS: Albumin 3.8 g/dL (3.4-5.0); BUN/Creatinine Ratio 17.6; Bilirubin, Direct 0.3 mg/dL (0-0.2); Bilirubin, Total 1.1 mg/dL (0.2-1.0); Calcium 8.9 mg/dL (8.5-10.1); Potassium 3.9 mmol/L (3.5-5.1); Total Protein 7.4 g/dL (6.4-8.2)
[2017-07-26 13:14] LABS: Anisocytosis Moderate; Ovalocytes FEW; Platelet Estimate Adequate
[2017-07-26 13:15] LABS: Polychromasia Slight
[2017-07-26 14:32] LABS: INR 2.9 (0.7-1.3)
[2017-07-26 15:20] LABS: Urine Color Straw (Yellow); Urine Glucose Normal (Normal)
[2017-07-26 15:21] LABS: Urine Bilirubin Negative (Negative); Urine Blood Negative /uL (Negative); Urine Ketone Negative (Negative); Urine Nitrite Negative (Negative); Urine Urobilinogen Normal (Negative); Urine pH 6.5 (5.0-8.0)
== END | disposition home or self-care (01) ==
LOC: CHF HDHVI 08:37
PROVIDERS: ATTEND Internal Medicine Cardiovascular Disease
DX: I10 Essential (primary) hypertension (principal); E78.00 Pure hypercholesterolemia, unspecified; K74.1 Hepatic sclerosis; E11.9 Type 2 diabetes mellitus without complications; R97.20 Elevated prostate specific antigen [PSA]; R53.81 Other malaise; E03.9 Hypothyroidism, unspecified; D64.9 Anemia, unspecified; E55.9 Vitamin D deficiency, unspecified; N39.0 Urinary tract infection, site not specified
CPT/HCPCS: 36415; 80048; 80061; 80076; 81003; 82306; 83036; 84153; 84403; 84443; 85025; 85610; G0463

== ENCOUNTER → 2017-07-31 | Outpatient (CLI) | payer MEDICARE, MEDICAID ==
[~2017-07-31] MED LIST changes: +IOHEXOL 350 MG/ML 100ML IJ ONE
[2017-07-31 08:00] VITALS: BP 124/70
[2017-07-31 09:30] VITALS: BP 137/77
== END | disposition home or self-care (01) ==
LOC: Rad HDHVI 07:52
PROVIDERS: ATTEND Internal Medicine Cardiovascular Disease
DX: I48.91 Unspecified atrial fibrillation (principal); I11.0 Hypertensive heart disease with heart failure; I50.22 Chronic systolic (congestive) heart failure; Z95.5 Presence of coronary angioplasty implant and graft
CPT/HCPCS: 74177; 82565; 93306; G0463; Q9967; 96374

== ENCOUNTER → 2017-08-07 | Outpatient (CLI) | payer MEDICARE, MEDICAID ==
[~2017-08-07] MED LIST changes: -IOHEXOL 350 MG/ML 100ML IJ ONE
[2017-08-07 09:20] VITALS: BP 138/58
[2017-08-07 10:12] LABS: INR 3.2 (0.7-1.3); Prothrombin Time 38.7 sec (9.0-12.0)
[2017-08-07 10:35] VITALS: BP 132/83
== END | disposition home or self-care (01) ==
LOC: CHF HDHVI 09:38
PROVIDERS: ATTEND Internal Medicine Cardiovascular Disease
DX: I48.91 Unspecified atrial fibrillation (principal)
CPT/HCPCS: 85610